=== PATIENT | female | born 1945 | race Two or more races ===

== ENCOUNTER → 2023-10-02 08:21 | Outpatient (REF) | payer OTHER, SELFPAY | LOC: DHCBC/DCA 08:21 | PROVIDERS: ATTENDING PHYSICIAN Internal Medicine Cardiovascular Disease; FAMILY PHYSICIAN Family Medicine | DX: I10 Essential (primary) hypertension (principal); R09.89 Other specified symptoms and signs involving the circulatory and respiratory systems; R00.2 Palpitations | CPT/HCPCS: 78452; 93017; A9500; J2785 ==

== ENCOUNTER → 2023-11-04 13:41 | Outpatient (REF) | payer OTHER, SELFPAY | LOC: RAD 13:41 | PROVIDERS: ATTENDING PHYSICIAN Internal Medicine Cardiovascular Disease; FAMILY PHYSICIAN Family Medicine | DX: I10 Essential (primary) hypertension (principal); R09.89 Other specified symptoms and signs involving the circulatory and respiratory systems | CPT/HCPCS: 93880 ==

== ENCOUNTER → 2024-06-03 06:20 | Day surgery (SDC) | payer OTHER, SELFPAY | LOC: GI 06:20 | PROVIDERS: ATTENDING PHYSICIAN Internal Medicine Gastroenterology | DX: K57.30 Diverticulosis of large intestine without perforation or abscess without bleeding (principal); D12.8 Benign neoplasm of rectum; Z86.0101 Personal history of adenomatous and serrated colon polyps; Z98.890 Other specified postprocedural states | CPT/HCPCS: 45331; 88305 ==

== ENCOUNTER → 2025-01-18 11:12 | Outpatient (REF) | payer OTHER, SELFPAY | LOC: HWRCS 11:12 | PROVIDERS: ATTENDING PHYSICIAN Internal Medicine Cardiovascular Disease; FAMILY PHYSICIAN Family Medicine | DX: I10 Essential (primary) hypertension (principal); I35.1 Nonrheumatic aortic (valve) insufficiency | CPT/HCPCS: 93306 ==

== ENCOUNTER → 2025-04-25 14:22 | Outpatient (REF) | payer OTHER, SELFPAY | LOC: HWRAD 14:22 | PROVIDERS: ATTENDING PHYSICIAN Anesthesiology Pain Medicine; FAMILY PHYSICIAN Family Medicine | DX: M25.561 Pain in right knee (principal) | CPT/HCPCS: 73560 ==

== ENCOUNTER → 2025-05-01 11:12 | Outpatient (REF) | payer OTHER, SELFPAY | LOC: PAVMRI 11:12 | PROVIDERS: ATTENDING PHYSICIAN Anesthesiology Pain Medicine; FAMILY PHYSICIAN Family Medicine | DX: M54.16 Radiculopathy, lumbar region (principal) | CPT/HCPCS: 72148 ==

== ENCOUNTER 2025-06-17 06:22 | Day surgery (SDC) | payer OTHER, SELFPAY | END 2025-06-17 13:18 | disposition home or self-care (01) | LOC: GI 06:22 | PROVIDERS: ATTENDING PHYSICIAN Internal Medicine Gastroenterology; FAMILY PHYSICIAN Student in an Organized Health Care Education/Training Program | DX: Z12.11 Encounter for screening for malignant neoplasm of colon (principal); K57.30 Diverticulosis of large intestine without perforation or abscess without bleeding; D12.8 Benign neoplasm of rectum; Z86.0101 Personal history of adenomatous and serrated colon polyps; Z98.890 Other specified postprocedural states | CPT/HCPCS: 45338; 88305 ==